=== PATIENT | female | born 1985 | race Two or more races ===

== ENCOUNTER → 2025-04-12 | Outpatient (CLI) | payer BC, MEDICAID, SELFPAY ==
--- NOTE | 2025-04-12 | XR_ITS ---
Shoulder bilateral, 6 views Technique: Shoulder AP internal rotation, AP external rotation, Y view each shoulder total 6 views INDICATIONS: Bilateral shoulder pain one year Exam date and time :April 12, 2025 1226 hours FINDINGS: Moderate osteopenia Bilateral prominent shoulder calcific tendinitis No shoulder fractures or dislocations IMPRESSION: Bilateral prominent shoulder calcific tendinitis
== END | disposition home or self-care (01) ==
PROVIDERS: PCP Nurse Practitioner Family; Referring Provider Nurse Practitioner Family; Visit Provider Nurse Practitioner Family
DX: M75.32 Calcific tendinitis of left shoulder (principal); M75.31 Calcific tendinitis of right shoulder
CPT/HCPCS: 73030

== ENCOUNTER → 2025-08-03 | Outpatient (CLI) | payer MEDICAID, SELFPAY ==
--- NOTE | 2025-08-03 | XR_ITS ---
Examination: Bilateral wrists 6 views TECHNIQUE: AP oblique lateral each wrist total 6 views Date and time: August 03, 2025 12:19 PM INDICATIONS: Bilateral wrist pain beginning 3 months ago. FINDINGS: Mild osteopenia. No fracture or dislocation involving either wrist. No avascular necrosis. No erosive or other significant arthritic change IMPRESSION: No erosive or significant arthritic change involving either wrist
--- NOTE | 2025-08-03 | XR_ITS ---
Examination: Bilateral hands, 6 views. Technique: AP, Oblique, Lateral each hand total 6 views Date and time of exam: August 03, 2025, 1214 hours INDICATIONS: Bilateral hand pain beginning 3 months ago. FINDINGS: Mild osteopenia. No fracture or dislocation involving either hand. No erosive or other significant arthritic change involving either hand IMPRESSION: No erosive or other significant arthritic change involving either hand
== END | disposition home or self-care (01) ==
PROVIDERS: PCP Nurse Practitioner Family; Referring Provider Nurse Practitioner Family; Visit Provider Nurse Practitioner Family
DX: M79.641 Pain in right hand (principal); M25.531 Pain in right wrist; M25.532 Pain in left wrist; M79.642 Pain in left hand
CPT/HCPCS: 73110; 73130

== ENCOUNTER → 2025-10-05 | Outpatient (CLI) | payer MEDICAID, SELFPAY ==
--- NOTE | 2025-10-05 12:20 | XR_ITS ---
Examination: Bone densitometry Date and time of exam: October 05, 2025, 1242 hours INDICATIONS: Hysterectomy age 35, personal history osteopenia Technique: Lumbar spine and hip total bone mineralization values of an calculated. Peak reference and age match control results have been displayed. Findings: Lumbar spine total bone mineralization is 1.090 gm/cm2. This is 0.4 standard deviations above peak reference. This is 0.6 standard deviations above age-matched controls. Hip total bone mineralization is 1.044 gm/cm2 This is 0.8 standard deviations above peak reference. This is 1.0 standard deviations above age-matched controls Impression: There is normal mineralization based on lumbar spine measurements. There is normal mineralization based on hip measurements
== END | disposition home or self-care (01) ==
PROVIDERS: Referring Provider Nurse Practitioner Family; Visit Provider Nurse Practitioner Family
DX: M85.80 Other specified disorders of bone density and structure, unspecified site (principal)
CPT/HCPCS: 77080